=== PATIENT | male | born 1955 | race Caucasian/White ===

== ENCOUNTER 2016-07-27 23:25 | Emergency (ER) | payer OTHER ==
[2016-07-28] MEDS ORDERED: ANUSOL-HC SUPP PR ONE (00:48)
--- NOTE | 2016-07-28 00:55 | PROVIDER DOCUMENTATION ---
HPI-Abdominal Pain/GI Problem - General Source: patient - History of Present Illness-ABD Nature of Presenting Problems: 61 year old M presents to the ED with a cc rectal pain and feeling that he has a mass in his rectum x2 days. PT states this began 1 day after a [address] Abdominal Pain Onset Location: reports: other (rectal) Pain Radiation: reports: no radiation Quality of Pain: reports: aching Severity in ED: reports: mild Onset/Duration: reports: 2 days ago Timing: reports: still present Activities at Onset: reports: none Modifying Factors: improves with: nothing Rectal Bleeding: reports: none Bruising or Bleeding Gums?: No Similar Symptoms Previously?: No Recently seen or treated by another doctor?: No <Linda Stoner - Last Filed: 07/28/16 01:04> <Prakash Carney - Last Filed: 07/28/16 01:16> - General Chief Complaint: General Adult Stated Complaint: MALE Time Seen by Provider: 07/28/16 00:30 Allergies/Adverse Reactions: Patient Allergies Allergy/AdvReac Type Severity Reaction Status Date / Time lisinopril Allergy Mild "dry cough" Verified 07/28/16 00:48 Home Medications: Home Medication List Medication Instructions Recorded Confirmed Last Taken Type Docusate Sodium [Colace] 100 mg PO DAILY PRN #20 capsule 07/28/16 Unknown Rx Hydrocortisone Supp [Anusol-Hc 25 mg CO BID #14 supp 07/28/16 Unknown Rx Supp] Oxycodone HCl/Acetaminophen 1 each PO Q4HR #14 tablet 07/28/16 Unknown Rx [Percocet 7.5-325 mg Tablet] Review of Systems - Adult - REVIEW OF SYSTEMS - ADULT Constitutional: denies: chills, fever Eyes: reports: no symptoms reported Ears, Nose, Mouth & Throat: reports: no symptoms reported Cardiovascular: denies: chest pain, palpitations Respiratory: denies: cough, shortness of breath Gastrointestinal: denies: constipation, nausea, rectal bleeding, vomiting Genitourinary: reports: no symptoms reported Musculoskeletal: reports: no symptoms reported Integumentary: reports: no symptoms reported Neurological: reports: no symptoms reported Psychiatric: reports: no symptoms reported Endocrine: reports: no symptoms reported Hematologic/Lymphatic: reports: no symptoms reported Allergic/Immunologic: reports: no symptoms reported All Other Systems: Reviewed and Negative <Herbie,Linda - Last Filed: 07/28/16 01:04> Past History - Adult - PAST MEDICAL HISTORY-ADULT Review of Records: reports: Nursing Assessment Review, Medications Reviewed Major Childhood Illnesses: reports: denies history Cardiovascular: reports: HTN, hyperlipidemia Endocrine/Immune: reports: Diabetes - PRIOR SURGERIES/PROCEDURES Surgical/Procedure History: reports: joint replacement - IMMUNIZATION STATUS Childhood Immunizations: See Nurse Assessment Flu Vaccine: See Nurse Assessment - SOCIAL HISTORY Smoking: non-smoker Substance Use: none/never Alcohol Use Frequency: never <Linda Stoner - Last Filed: 07/28/16 01:04> Physical Exam-General - PHYSICAL EXAM-ADULT Initial Vital Signs Reviewed: Yes - CONSTITUTIONAL General Appearance: appears well, alert, no apparent distress - RESPIRATORY Respiratory: chest non-tender, lungs clear, normal breath sounds - CARDIOVASCULAR Cardiovascular: normal peripheral pulses, regular rate, rhythm, no edema - GASTROINTESTINAL (ABDOMEN) Abdominal Exam: normal bowel sounds, non tender, soft - GENITOURINARY Rectal Exam: hemorrhoids (3x1 cm), mass (quarter sized mass above the hemorrhoid ) - MUSCULOSKELETAL Extremity: normal inspection - SKIN Integumentary: normal color, normal turgor, warm/dry - PSYCHIATRIC Psych/Mental Status: normal mood/affect, normal thought content, normal thought process, oriented x 3 <Linda Stoner - Last Filed: 07/28/16 01:04> Progress - PLAN OF CARE/RESULTS Progress/Plan/Lab Results: plan of care: medications Orders Category Date Time Status Hydrocortisone Supp [Anusol-Hc Supp] Med 07/28/16 00:48 Discontinued 25 mg CO NOW ONE Vital Signs - 24 hr 07/27/16 23:31 Temperature 97.6 F Pulse Rate 90 Respiratory 18 Rate Blood Pressure 147/91 O2 Sat by Pulse 95 Oximetry Pt given results and will be d/c home w/o rx to follow up with PCP. Pt verbally understood instructions. PT remained clinically stable throughout the course of the ED stay and will return if symptoms worsen. <Linda Stoner - Last Filed: 07/28/16 01:04> Departure <Linda Stoner - Last Filed: 07/28/16 01:04> - Departure Time of Disposition Order: 01:10 Certified Medical Emergency: Emergent <Prakash Carney - Last Filed: 07/28/16 01:16> - Departure DIAGNOSIS: Rectal mass, Hemorrhoid thrombosis Disposition: HOME 01 Condition: Good Additional Instructions: Be sure to follow up with colo-rectal surgeon Prescriptions: Hydrocortisone Supp [Anusol-Hc Supp] 25 mg CO BID #14 supp Docusate Sodium [Colace] 100 mg PO DAILY PRN #20 capsule PRN Reason: Constipation Oxycodone HCl/Acetaminophen [Percocet 7.5-325 mg Tablet] 1 each PO Q4HR #14 tablet Referrals: None,PCP [Primary Care Provider] - Attestation - Scribe Verification/Attestation Scribe:: Linda Stoner Acting as Scribe for:: Prakash Carney Scribe documention review:: This chart was documented by a scribe and accurately reflects the service the provider performed and the decisions made by the provider. <Linda Stoner - Last Filed: 07/28/16 01:04> Physician Attestation - Physician Attestation I, the provider, attest to the following statement:: Prakash Carney Physician documentation Attestation:: This documentation recorded by the scribe accurately reflects the service I personally performed and the decisions made by me. <Linda Stoner - Last Filed: 07/28/16 01:04>
[2016-07-28 01:09] VITALS: BP 147/92
== END 2016-07-28 01:25 | disposition home or self-care (01) ==
LOC: ED 23:25
DX: K64.5 Perianal venous thrombosis (principal); K62.89 Other specified diseases of anus and rectum; I10 Essential (primary) hypertension; E78.5 Hyperlipidemia, unspecified; E11.9 Type 2 diabetes mellitus without complications; Z96.60 Presence of unspecified orthopedic joint implant